=== PATIENT | female | born 1985 | race Caucasian/White ===

== ENCOUNTER → 2016-05-11 | Day surgery (SDC) | payer OTHER ==
[~2016-05-11] VITALS: Ht 160 cm; Wt 61.2 kg
[~2016-05-11] MED LIST: ACET50TA PO; ACET50TAOT PO; ACETAMINOPHEN 650 MG SUPP As Ordered ONE; ACETAMINOPHEN 650 MG SUPP PR ONE; BUPIVACAINE HCL 0.25% 30 ML VIAL As Ordered ONE; DOCU10ELUD PO; HYDROmorphone HCL 1 MG/ML SYRINGE (J1170) IV PRN; IBUP600T26 PO; IBUP60TA PO; IBUP80TA PO; IBUPROFEN 800 MG TAB PO SCH; KETOROLAC 60 MG/2 ML VIAL (J1885) As Ordered ONE; LIDOCAINE 2% INJ 100 MG/5 ML SDV (FOR ANES.) As Ordered ONE; LR 1,000 ML IV SCH; MEPERIDINE INJ 25 MG/ML VIAL (J2175) IV PRN; MIDAZOLAM INJ 2 MG/2 ML VIAL (J2250) As Ordered ONE; ONDANSETRON 4MG/2ML VIAL (J2405) As Ordered ONE; ONDANSETRON 4MG/2ML VIAL (J2405) IV PRN; PERCOCET 5MG/325MG TAB As Ordered ONE; PERCOCET 5MG/325MG TAB PO PRN; PERCOCET FT; PNV-CAP5 PO; PROPOFOL 200 MG/20 ML VIAL As Ordered ONE; VITAPRTA PO; ceFAZolin 1GM INJ (J0690) As Ordered ONE; fentaNYL 100 MCG/2 ML INJECTION (J3010) As Ordered ONE; fentaNYL 100 MCG/2 ML INJECTION (J3010) IV PRN
[2016-05-11 10:48] LABS: MEAN CORPUSCULAR HEMOGLOBIN 31.1 pg (27.0-33.0); MEAN CORPUSCULAR HGB CONC 33.3 g/dl (32.0-36.5); MEAN CORPUSCULAR VOLUME 93.5 fl (80.0-96.0); RED CELL DISTRIBUTION WIDTH 12.4 % (11.5-14.5)
[2016-05-11 11:02] LABS: CONTROL LINE HCG INT CTR LINE PRESENT
[2016-05-11] MEDS: PERCOCET 5MG/325MG TAB PO PRN ×2 (13:42→14:20)
[2016-05-11 15:00] VITALS: BP 106/70
--- NOTE | 2016-05-11 18:20 | RO ---
DATE OF PROCEDURE: 05/11/2016 Claudia is a 28-year-old female with an extensive history of dyspareunia and bilateral vaginal labial hypertrophy with left Bartholin cyst. After counseling in the office a decision was made for bilateral labiaplasty/reduction and marsupialization of the left Bartholin cysts. PREOPERATIVE DIAGNOSES: 1. Bilateral vaginal labial hypertrophy. 2. Dyspareunia. 3. Left Bartholin cyst/abscess POSTOPERATIVE DIAGNOSES: 1. Bilateral vaginal labial hypertrophy. 2. Dyspareunia. 3. Left Bartholin cyst/abscess PROCEDURES: 1. Bilateral vaginal labial reduction and plasty. 2. Marsupialization of a left Bartholin's cyst/abscess. SURGEON: Dr. Arita ANESTHESIA: General. COMPLICATIONS: None. ESTIMATED BLOOD LOSS: Approximately 350 mL. SPECIMENS: Sent to the labs bi-lateral vaginal labia and Bartholin cyst wall. PROCEDURE: After obtaining informed consent the patient was taken to the operating room where general anesthetic was found to be adequate. She was then draped and prepped usual sterile fashion in the dorsal lithotomy position. At this point straight catheter bladder was performed for approximately 150 mL of clear urine. We then identified the left Bartholin cyst with an incision made in the midline of the left labia the cyst was identified and the cyst wall was ruptured. Copious amount of purulent material was removed from the cyst. The cyst wall was identified and the cyst wall was then dissected. We then marsupialized the edge of the crater where the cyst wall was. Attention was then turned to the labia. After copious irrigation and recleaning the vagina the excess vaginal labia's were noted on boths. A midline incision on the labia as well as a lateral incision was made. The excess labia was then removed. We then did a labiaplasty with interrupted sutures down the labia for good hemostasis. The opposite side was done in similar fashion, making sure keep both labia symmetrical. Good hemostasis noted. After performing the bilateral labial plasty the instruments were removed and the patient tolerated procedure well. She was then transferred to recovery room in stable condition.
== END ==
LOC: M SDC 10:08
PROVIDERS: ATTEND Obstetrics & Gynecology
DX: N90.60 Unspecified hypertrophy of vulva (principal); N94.10 Unspecified dyspareunia; N75.0 Cyst of Bartholin's gland; R29.898 Other symptoms and signs involving the musculoskeletal system; R06.83 Snoring; Z86.2 Personal history of diseases of the blood and blood-forming organs and certain disorders involving the immune mechanism; Z87.891 Personal history of nicotine dependence
CPT/HCPCS: 36415; 56420; 56620; 84703; 85027; 86850; 86900; 86901; 88304; 88305; J0690; J1885; J2250; J2405; J3010

== ENCOUNTER → 2017-01-23 | Outpatient (REF) | payer OTHER ==
[~2017-01-23] MED LIST changes: -ACETAMINOPHEN 650 MG SUPP As Ordered ONE; -ACETAMINOPHEN 650 MG SUPP PR ONE; +BACT800T5 PO; -BUPIVACAINE HCL 0.25% 30 ML VIAL As Ordered ONE; -HYDROmorphone HCL 1 MG/ML SYRINGE (J1170) IV PRN; -IBUPROFEN 800 MG TAB PO SCH; -KETOROLAC 60 MG/2 ML VIAL (J1885) As Ordered ONE; -LIDOCAINE 2% INJ 100 MG/5 ML SDV (FOR ANES.) As Ordered ONE; -LR 1,000 ML IV SCH; -MEPERIDINE INJ 25 MG/ML VIAL (J2175) IV PRN; -MIDAZOLAM INJ 2 MG/2 ML VIAL (J2250) As Ordered ONE; -ONDANSETRON 4MG/2ML VIAL (J2405) As Ordered ONE; -ONDANSETRON 4MG/2ML VIAL (J2405) IV PRN; -PERCOCET 5MG/325MG TAB As Ordered ONE; -PERCOCET 5MG/325MG TAB PO PRN; -PROPOFOL 200 MG/20 ML VIAL As Ordered ONE; -ceFAZolin 1GM INJ (J0690) As Ordered ONE; -fentaNYL 100 MCG/2 ML INJECTION (J3010) As Ordered ONE; -fentaNYL 100 MCG/2 ML INJECTION (J3010) IV PRN
[2017-01-23 20:42] LABS: CONTROL LINE UCG INT CTR LINE PRESENT
[2017-01-23 20:52] LABS: CALCIUM OXALATE CRYSTALS SMALL
== END ==
LOC: M LAB REF 16:37
PROVIDERS: ATTEND Physician Assistant
DX: N39.0 Urinary tract infection, site not specified (principal); R06.00 Dyspnea, unspecified; N91.2 Amenorrhea, unspecified

== ENCOUNTER → 2017-05-11 | Outpatient (REF) | payer OTHER | LOC: M LAB REF 20:48 | DX: R30.0 Dysuria (principal) ==

== ENCOUNTER 2017-05-20 01:41 | Emergency (ER) | payer OTHER ==
[2017-05-20] MEDS: IPRATROPIUM 0.5MG/ALBUTEROL 2.5MG INH SOL UD 3ML (DUONEB)(J7620) NEB (02:54)
== END 2017-05-20 03:53 | disposition home or self-care (01) ==
LOC: M ED 01:41
DX: J06.9 Acute upper respiratory infection, unspecified (principal); Z87.891 Personal history of nicotine dependence
CPT/HCPCS: 71046

== ENCOUNTER 2017-05-20 08:15 | Emergency (ER) | payer OTHER ==
[2017-05-20] MEDS: ALBUTEROL SULFATE 2.5 MG/0.5 ML INH NEB SOLN NEB ×2 (09:25→09:27)
[2017-05-20] MEDS: methylPREDNISolone INJ 125 MG/2 ML VIAL (J2930) IM (09:26)
[2017-05-20 10:03] LABS: INFLUENZA A AMPLIFICATION NEGATIVE (NEGATIVE); INFLUENZA B AMPLIFICATION NEGATIVE (NEGATIVE)
== END 2017-05-20 09:52 | disposition home or self-care (01) ==
LOC: M ED 08:15
DX: J06.9 Acute upper respiratory infection, unspecified (principal); R06.2 Wheezing; Z87.891 Personal history of nicotine dependence
CPT/HCPCS: J2930

== ENCOUNTER → 2017-07-07 | Outpatient (REF) | payer OTHER ==
[2017-07-07 15:35] LABS: BASO % 0.3 % (0.0-1.0); EOS % 0.6 % (0.0-3.0); HEMATOCRIT 38.3 % (36.0-47.0); HEMOGLOBIN 12.8 g/dl (12.0-15.5); IMMATURE GRANULOCYTE % 0.3 % (0-3.0); LYMPH # 1.8 10^3/uL (1.5-4.5); LYMPH % 25.4 % (24.0-44.0); MEAN CORPUSCULAR HEMOGLOBIN 31.7 pg (27.0-33.0); MEAN CORPUSCULAR HGB CONC 33.4 g/dl (32.0-36.5); MEAN CORPUSCULAR VOLUME 94.8 fl (80.0-96.0); MONO # 0.7 10^3/uL (0.0-0.8); MONO % 9.6 % (0.0-5.0); NEUTROPHILS # 4.4 10^3/uL (1.8-7.7); NEUTROPHILS % 63.8 % (36.0-66.0); PLATELET COUNT, AUTOMATED 206 10^3/uL (150-450); RED BLOOD COUNT 4.04 10^6/uL (4.00-5.40); RED CELL DISTRIBUTION WIDTH 12.2 % (11.5-14.5)
[2017-07-07 15:48] LABS: FERRITIN 25 NG/ML (8-252); IRON (FE) 138 UG/DL (50-170); PERCENT SATURATION 42.7 % (13.2-45.0); TOTAL IRON BINDING CAPACITY 323 UG/DL (250-450)
[2017-07-07 15:52] LABS: FOLATE 21.5 NG/ML; VITAMIN B12 LEVEL 689 PG/ML
== END ==
LOC: M LABDRAW1 11:11
DX: O99.89 Other specified diseases and conditions complicating pregnancy, childbirth and the puerperium (principal); R42 Dizziness and giddiness; O26.811 Pregnancy related exhaustion and fatigue, first trimester
CPT/HCPCS: 82746

== ENCOUNTER → 2017-08-18 | Outpatient (REF) | payer OTHER ==
[2017-08-18 11:56] LABS: BASO % 0.2 % (0.0-1.0); EOS # 0.1 10^3/uL (0.0-0.50); EOS % 0.6 % (0.0-3.0); HEMATOCRIT 36.8 % (36.0-47.0); HEMOGLOBIN 12.3 g/dl (12.0-15.5); IMMATURE GRANULOCYTE % 0.3 % (0-3.0); LYMPH # 2.4 10^3/uL (1.5-4.5); MEAN CORPUSCULAR HEMOGLOBIN 31.9 pg (27.0-33.0); MEAN CORPUSCULAR HGB CONC 33.4 g/dl (32.0-36.5); MEAN CORPUSCULAR VOLUME 95.3 fl (80.0-96.0); MONO # 0.5 10^3/uL (0.0-0.8); MONO % 5.5 % (0.0-5.0); NEUTROPHILS # 6.5 10^3/uL (1.8-7.7); NEUTROPHILS % 68.4 % (36.0-66.0); PLATELET COUNT, AUTOMATED 193 10^3/uL (150-450); RED BLOOD COUNT 3.86 10^6/uL (4.00-5.40); RED CELL DISTRIBUTION WIDTH 12.2 % (11.5-14.5); WHITE BLOOD COUNT 9.5 10^3/uL (4.0-10.0)
[2017-08-18 12:25] LABS: RUBELLA IgG QUALITATIVE IMMUNE (IMMUNE)
[2017-08-18 12:26] LABS: HBsAg Prenatal NEGATIVE (NEGATIVE)
[2017-08-18 12:54] LABS: HEPATITIS C VIRUS ABY INDEX 0.1 INDEX (<0.8)
[2017-08-18 12:54] LABS: HIV 1&2 SCREEN CENTAUR NEGATIVE (NEGATIVE)
[2017-08-18 14:21] LABS: CHLAMYDIA DNA AMPLIFICATION NEGATIVE (NEGATIVE); GC DNA AMPLIFICATION NEGATIVE (NEGATIVE)
== END ==
LOC: M LABDRAWP 11:32
DX: Z34.81 Encounter for supervision of other normal pregnancy, first trimester (principal); Z3A.11 11 weeks gestation of pregnancy
CPT/HCPCS: 86762

== ENCOUNTER 2017-08-24 06:16 | Day surgery (SDC) | payer OTHER ==
[2017-08-24] MEDS ORDERED: LR 1,000 ML IV ×3 (06:30→09:00)
[2017-08-24 06:39] LABS: HEMATOCRIT 34.9 % (36.0-47.0); MEAN CORPUSCULAR HEMOGLOBIN 31.7 pg (27.0-33.0); MEAN CORPUSCULAR HGB CONC 34.4 g/dl (32.0-36.5); MEAN CORPUSCULAR VOLUME 92.3 fl (80.0-96.0); PLATELET COUNT, AUTOMATED 195 10^3/uL (150-450); RED BLOOD COUNT 3.78 10^6/uL (4.00-5.40); RED CELL DISTRIBUTION WIDTH 12.1 % (11.5-14.5); WHITE BLOOD COUNT 8.6 10^3/uL (4.0-10.0)
[2017-08-24] MEDS ORDERED: ePHEDrine SULFATE 25 MG/5 ML(5MG/ML) SYRINGE As Ordered (08:04)
[2017-08-24] MEDS ORDERED: ONDANSETRON 4MG/2ML VIAL (J2405) As Ordered (08:04)
[2017-08-24] MEDS ORDERED: fentaNYL 100 MCG/2 ML INJECTION (J3010) As Ordered (08:04)
[2017-08-24] MEDS ORDERED: LIDOCAINE 2% INJ 100 MG/5 ML SDV (FOR ANES.) As Ordered (08:04)
[2017-08-24] MEDS ORDERED: PROPOFOL 200 MG/20 ML VIAL As Ordered (08:04)
[2017-08-24] MEDS: SILVER NITRATE APPLICATOR As Ordered (08:33)
[2017-08-24] MEDS ORDERED: MEPERIDINE INJ 25 MG/ML VIAL (J2175) IV (09:00)
[2017-08-24] MEDS ORDERED: fentaNYL 100 MCG/2 ML INJECTION (J3010) IV (09:00)
[2017-08-24] MEDS ORDERED: METOCLOPRAMIDE INJ 10MG/2ML VIAL (J2765) IV (09:00)
[2017-08-24] MEDS ORDERED: PERCOCET 5MG/325MG TAB PO (09:00)
[2017-08-24] MEDS ORDERED: ONDANSETRON 4MG/2ML VIAL (J2405) IV (09:00)
[2017-08-24] MEDS: INDOMETHACIN 25 MG CAP PO (09:07)
== END 2017-08-24 10:35 | disposition home or self-care (01) ==
LOC: M SDC 06:16
DX: O34.32 Maternal care for cervical incompetence, second trimester (principal); O99.612 Diseases of the digestive system complicating pregnancy, second trimester; K21.9 Gastro-esophageal reflux disease without esophagitis; O99.112 Other diseases of the blood and blood-forming organs and certain disorders involving the immune mechanism complicating pregnancy, second trimester; D69.3 Immune thrombocytopenic purpura; R06.83 Snoring; Z86.718 Personal history of other venous thrombosis and embolism; Z3A.13 13 weeks gestation of pregnancy
CPT/HCPCS: 59320

== ENCOUNTER → 2017-10-04 | Outpatient (CLI) | payer OTHER | LOC: M RAD 13:06 | DX: Z34.82 Encounter for supervision of other normal pregnancy, second trimester (principal) | CPT/HCPCS: 76811 ==

== ENCOUNTER → 2017-11-01 | Outpatient (CLI) | payer OTHER | LOC: M RAD 12:33 | DX: O09.212 Supervision of pregnancy with history of pre-term labor, second trimester (principal) | CPT/HCPCS: 76816 ==

== ENCOUNTER → 2017-12-02 | Outpatient (CLI) | payer MEDICAID ==
[2017-12-02 19:20] LABS: HEMATOCRIT 37.2 % (36.0-47.0); HEMOGLOBIN 11.8 g/dl (12.0-15.5); MEAN CORPUSCULAR HEMOGLOBIN 30.7 pg (27.0-33.0); MEAN CORPUSCULAR HGB CONC 31.7 g/dl (32.0-36.5); MEAN CORPUSCULAR VOLUME 96.9 fl (80.0-96.0); PLATELET COUNT, AUTOMATED 206 10^3/uL (150-450); RED BLOOD COUNT 3.84 10^6/uL (4.00-5.40); WHITE BLOOD COUNT 11.2 10^3/uL (4.0-10.0)
[2017-12-02 19:25] LABS: GLUCOSE CHALLENGE TEST 1 HOUR 158 MG/DL (LESS THAN 140)
== END ==
LOC: M WUC 11:38
DX: O09.212 Supervision of pregnancy with history of pre-term labor, second trimester (principal)
CPT/HCPCS: 82950

== ENCOUNTER → 2017-12-21 | Outpatient (CLI) | payer OTHER, MEDICAID ==
[2017-12-21 09:03] LABS: GLUCOSE, FASTING 90 MG/DL (LESS THAN 95)
[2017-12-21 09:55] LABS: 1 HR GLUCOSE 145 MG/DL (LESS THAN 180)
[2017-12-21 10:58] LABS: 2 HR GLUCOSE 128 MG/DL (LESS THAN 155)
[2017-12-21 12:55] LABS: 3 HR GLUCOSE 106 MG/DL (LESS THAN 140)
== END ==
LOC: M LAB 07:58
DX: O09.212 Supervision of pregnancy with history of pre-term labor, second trimester (principal); Z3A.00 Weeks of gestation of pregnancy not specified
CPT/HCPCS: 82951

== ENCOUNTER → 2018-01-23 | Outpatient (REF) | payer OTHER | LOC: M LAB REF 17:12 | DX: O09.213 Supervision of pregnancy with history of pre-term labor, third trimester (principal); Z36.85 Encounter for antenatal screening for Streptococcus B | CPT/HCPCS: 87081 ==

== ENCOUNTER 2018-01-28 11:44 | Observation (INO) | payer OTHER ==
[2018-01-28] MEDS ORDERED: CHLOROPROCAINE 2 % INJ PRES.FREE 20 ML VIAL (J2400) As Ordered (13:15)
[2018-01-28] MEDS ORDERED: PROPOFOL 200 MG/20 ML VIAL As Ordered (13:19)
[2018-01-28] MEDS ORDERED: LIDOCAINE 2% INJ 100 MG/5 ML SDV (FOR ANES.) As Ordered (13:20)
[2018-01-28 13:30] LABS: HEMATOCRIT 33.8 % (36.0-47.0); HEMOGLOBIN 11.1 g/dl (12.0-15.5); MEAN CORPUSCULAR HEMOGLOBIN 30.3 pg (27.0-33.0); MEAN CORPUSCULAR HGB CONC 32.8 g/dl (32.0-36.5); MEAN CORPUSCULAR VOLUME 92.3 fl (80.0-96.0); PLATELET COUNT, AUTOMATED 191 10^3/uL (150-450); RED BLOOD COUNT 3.66 10^6/uL (4.00-5.40); RED CELL DISTRIBUTION WIDTH 12.9 % (11.5-14.5); WHITE BLOOD COUNT 9.3 10^3/uL (4.0-10.0)
[2018-01-28] MEDS ORDERED: ePHEDrine SULFATE 25 MG/5 ML(5MG/ML) SYRINGE As Ordered (14:14)
[2018-01-28] MEDS ORDERED: PHENYLephrine HCL 500 MCG/5 ML (100MCG/ML) SYRINGE (J2370) As Ordered (14:15)
[2018-01-28] MEDS ORDERED: ATROPINE SULF 1MG/10ML SYRINGE (J0461) As Ordered (14:15)
[2018-01-28] MEDS ORDERED: GLYCOPYRROLATE INJ 0.2 MG/ML 2 ML VIAL As Ordered (14:16)
[2018-01-28] MEDS ORDERED: fentaNYL 100 MCG/2 ML INJECTION (J3010) IV (15:00)
[2018-01-28] MEDS ORDERED: ONDANSETRON 4MG/2ML VIAL (J2405) IV (15:00)
[2018-01-28] MEDS ORDERED: LR 1,000 ML IV (15:00)
[2018-01-28] MEDS: BETAMETHASONE SOLUSPAN 6MG/ML INJ 5ML (J0702) IM (15:48)
[2018-01-29] MEDS: BETAMETHASONE SOLUSPAN 6MG/ML INJ 5ML (J0702) IM (15:23)
== END 2018-01-29 15:40 | disposition home or self-care (01) ==
LOC: M LDO 11:44 → M LDI 15:16
PROVIDERS: Obstetrics & Gynecology
DX: N88.3 Incompetence of cervix uteri (principal); N99.71 Accidental puncture and laceration of a genitourinary system organ or structure during a genitourinary system procedure
CPT/HCPCS: 57720

== ENCOUNTER 2018-02-23 06:30 | Inpatient (IN) | payer OTHER ==
[~2018-02-23] VITALS: Ht 162.6 cm; Wt 90.3 kg
[2018-02-23] VITALS (23 sets, daily range): BP systolic 109–125; BP diastolic 58–93
[~2018-02-23 06:30] MED LIST changes: +ACET500T15 PO; -ACET50TAOT PO; +OMEP40CA2 PO; +PRENTAB55 PO; +PROAAER10 INH
[2018-02-23] MEDS ORDERED: PRENTAB9 PO (06:41)
[2018-02-23] MEDS ORDERED: LACTATED RINGER'S 1000 ML IV STA (07:13)
[2018-02-23 07:43] LABS: HEMATOCRIT 34.6 % (36.0-47.0); HEMOGLOBIN 11.1 g/dl (12.0-15.5); MEAN CORPUSCULAR HEMOGLOBIN 29.5 pg (27.0-33.0); MEAN CORPUSCULAR HGB CONC 32.1 g/dl (32.0-36.5); PLATELET COUNT, AUTOMATED 200 10^3/uL (150-450); RED BLOOD COUNT 3.76 10^6/uL (4.00-5.40); WHITE BLOOD COUNT 9.5 10^3/uL (4.0-10.0)
--- NOTE | 2018-02-23 07:45 | HPE ---
DATE OF ADMISSION: 02/23/2018 CHIEF COMPLAINT: Labor. HISTORY OF PRESENT ILLNESS: Claudia is a 32-year-old, (G) 5, para (P) 0-2-2-1, at 39 weeks 2 days estimated gestational age by last menstrual period of 05/24/2017 with an estimated date of confinement of 02/28/2018. This was confirmed by first trimester ultrasound. She initiated care at [facility] in the first trimester. She presents today complaining of uterine contractions every 20 minutes that last about 5 minutes since 0400 hours this morning. She denies any bleeding or discharge and is feeling the baby move. Her water broke at 0700 while she was being roomed at labor and delivery. Obstetrical history is significant for [place] cerclage placed at 13 weeks 1 day and was removed on January 28, 2018. During the removal, she did have a cervical laceration with repair. She received [place] injections from 16 to 36 weeks. LABS: Blood type O positive. GBS negative. Rubella immune. HIV negative. Gonorrhea negative. Chlamydia negative. Hepatitis B surface antigen negative. VDRL nonreactive. Diabetes screen 158. 3-hour GTT: 90/145/128/106. Blood pressures in the office have been ranging from 100-130 systolic over 62-74 diastolic. She has gained 49 pounds this . OBSTETRICAL ULTRASOUND: anatomy scan on 10/04/2017 showed a single intrauterine with anterior placenta. PAST OBSTETRICAL HISTORY: 1. In 2010, miscarriage at 19 weeks estimated gestational age secondary to placental abruption and incompetent cervix. 2. In 2012, miscarriage at 24 weeks estimated gestational age secondary to incompetent cervix. 3. In 2013, spontaneous at 4 weeks gestational age. 4. In 2014, she delivered a male infant at 36 weeks 3 days estimated gestational age via normal spontaneous vaginal delivery weighing 6 pounds 15 ounces, significant for a cerclage placed at 13 weeks and receiving Deirdre weekly. PAST MEDICAL HISTORY: None. MEDICATIONS: - vitamins - omeprazole 20 mg daily - [place] injections from 16-36 weeks. PAST SURGICAL HISTORY: Heel surgery, tonsillectomy and adenoidectomy. ALLERGIES: None. SOCIAL HISTORY: The patient is single, father of the baby is involved. Denies tobacco, alcohol or drug use. EXAMINATION: Vitals: Temperature 97.1, heart rate 80, blood pressure 121/73, respiratory rate 20. Abdomen: Gravid. Sterile Vaginal Exam: 4 cm, 80% effaced, -2 station. Monitor: Category one tracing with a baseline of 140 beats per minute. Moderate variability, positive accelerations, no decelerations. [place]: Contractions every 6 minutes for approximately 1 minute each. ASSESSMENT/PLAN: 1. Intrauterine at 39 and 2 in active labor. 2. GBS negative, no need for antibiotics. 3. Patient is requesting epidural for pain. 4. Anticipate normal spontaneous vaginal delivery. My faculty preceptor for this patient encounter was physically present during the encounter and was fully available. All aspects of the patient interview, examination, medical decision making process, and medical care plan development were reviewed and approved by the faculty preceptor. The faculty preceptor is aware and concurs with the plan as stated in the body of this note and will attest to such by his/her co-signature. SEFERINO
[2018-02-23] MEDS ORDERED: LR 1,000 ML IV SCH (08:00)
--- NOTE | 2018-02-23 08:52 | IPNPDOC ---
Text Note Date of Service The patient was seen on 02/23/18. NOTE Feeling pressure UC Q 2-3 minutes x 45-60 seconds FH 145, Cat I SVE /-2, bulging forebag Epidural pending VS,Karma, I+O VS, Fishbone, I+O Laboratory Tests 02/23/18 07:24 Red Blood Count 3.76 L, Mean Corpuscular Volume 92.0, Mean Corpuscular Hemoglobin 29.5, Mean Corpuscular Hemoglobin Concent 32.1, Red Cell Distribution Width 14.0 Vital Signs Date Time Temp Pulse Resp B/P (MAP) Pulse Ox O2 Delivery O2 Flow Rate FiO2 02/23/18 07:39 98.0 77 18 115/78 (90) Danielle Duran CNM Feb 23, 2018 08:51
[2018-02-23] MEDS: PRENATAL VITAMINS CHEWABLE TABLET PO SCH (09:00)
[2018-02-23] MEDS ORDERED: diphenhydrAMINE INJ 50MG/ML VIAL (J1200) IV PRN (10:00)
[2018-02-23] MEDS ORDERED: LACTATED RINGER'S 1000 ML IV PRN (10:00)
[2018-02-23] MEDS ORDERED: EPIDURAL/PCA KEYS XX PRN (10:00)
[2018-02-23] MEDS ORDERED: NALOXONE INJ 0.4 MG/1 ML VIAL (J2310) IV PRN (10:00)
[2018-02-23] MEDS ORDERED: ePHEDrine SULFATE 25 MG/5 ML(5MG/ML) SYRINGE IV PRN (10:00)
[2018-02-23] MEDS ORDERED: ONDANSETRON 4MG/2ML VIAL (J2405) IV PRN ×2 (10:00→11:30)
[2018-02-23] MEDS ORDERED: REFRIGERATOR IV KEYS XX PRN (10:00)
[2018-02-23] MEDS ORDERED: FENTANYL/ROPIVACAINE/NACL BAG 100 ML EPIDURAL SCH (10:00)
[2018-02-23] MEDS ORDERED: EPIDURAL COMMENT XX SCH (10:00)
[2018-02-23] MEDS ORDERED: OXYTOCIN 30 UNITS IN 0.9% NaCl 500ML IV BAG (J2590) As Ordered ONE (10:08)
[2018-02-23] MEDS: OXYTOCIN DRIP 30 UNITS in APPROPRIATE DILUENT 1 EA IV SCH ×2 (11:17→11:48)
[2018-02-23 11:23] LABS: CORD GAS ABE V -2.7; CORD GAS HCO3 V 23.6 MEQ/L; CORD GAS PCO2 V 46.4 mmHg; CORD GAS PH V 7.325 UNITS; CORD GAS PO2 V 40.5 mmHg; CORD GAS SBC V 21.9 MEQ/L; CORD GAS TCO2 V 25.1 MEQ/L
[2018-02-23] MEDS ORDERED: DIBUCAINE 1% OINTMENT 30GM TOP PRN (11:30)
[2018-02-23] MEDS ORDERED: DOCUSATE SODIUM 100 MG CAP PO PRN (11:30)
[2018-02-23] MEDS ORDERED: ACETAMINOPHEN 500 MG TAB PO PRN (11:30)
[2018-02-23] MEDS ORDERED: METHYLERGONOVINE MALEATE 0.2 MG TAB PO PRN (11:30)
[2018-02-23] MEDS ORDERED: MEASLES,MUMPS,RUBELLA VACCINE INJ (MMR-II) (90707) SC SCH (11:30)
[2018-02-23] MEDS ORDERED: RHOGAM 300 MCG (1500 IU) INJ (J2790) IM SCH (11:30)
--- NOTE | 2018-02-23 14:24 | DN ---
DELIVERY NOTE DATE OF DELIVERY: 02/23/2018 PREDELIVERY DIAGNOSIS: 39 weeks 2 days gestation. POST DELIVERY DIAGNOSIS: Delivered. PROCEDURE: Spontaneous vaginal delivery. PROVIDER: Kelsy Bermudez OD PGY-2 ORDAINED MINISTER: Danielle Duran CNM ANESTHESIA: Epidural. ESTIMATED BLOOD LOSS: 400 mL. FINDINGS: Male weighing 7 pounds 13 ounces or 3550 grams. scores 8 and 9. DELIVERY SUMMARY: After a short second stage the patient spontaneously delivered an 7 pound 13 ounce or 3550 gram male infant under epidural anesthesia at 1057 hours. The delivered left occiput anterior, restituted to left occiput transverse. There was no nuchal. The shoulders delivered with ease followed by the corpus and terminal meconium. The cried spontaneously and was handed to the mother. scores were 8 and 9. The cord was doubly clamped and cut by the father of baby. The placenta was delivered spontaneously via Storey mechanism at 1106 hours and appeared to be intact. The patient received IV Pitocin immediately after delivery of the placenta. The patient did not have any tears. Sponge, instrument and needle counts were correct. The parents have named their baby Tree. My faculty preceptor for this patient encounter was physically present during the encounter and was fully available. All aspects of the patient interview, examination, medical decision making process, and medical care plan development were reviewed and approved by the faculty preceptor. The faculty preceptor is aware and concurs with the plan as stated in the body of this note and will attest to such by his/her cosignature. SEFERINO
[2018-02-23] MEDS: IBUPROFEN 800 MG TAB PO PRN (19:52)
[2018-02-24] MEDS: IBUPROFEN 800 MG TAB PO PRN ×2 (05:26→15:42)
[2018-02-24 05:46] VITALS: BP 113/72
--- NOTE | 2018-02-24 07:11 | IPNPDOC ---
Text Note Date of Service The patient was seen on 02/24/18. NOTE PP #1 Feels well. Breast feeding. Adequate pain management. Voiding VSS, afebrile, normotensive Breasts soft, nipples intact Fundus firm, NT, down 1 FB Lochia rubra light without odor Perineum intact PP #1 Routine care. Anticipate D/C mahad VS,Fishbone, I+O VS, Fishbone, I+O Laboratory Tests 02/23/18 07:24 Red Blood Count 3.76 L, Mean Corpuscular Volume 92.0, Mean Corpuscular Hemoglobin 29.5, Mean Corpuscular Hemoglobin Concent 32.1, Red Cell Distribution Width 14.0 Vital Signs Date Time Temp Pulse Resp B/P (MAP) Pulse Ox O2 Delivery O2 Flow Rate FiO2 02/24/18 05:46 98.2 92 18 113/72 (86) I&O- Last 24 Hours up to 6 AM 02/24/18 06:00 Intake Total 800 ml Output Total 400 ml Balance 400 ml Danielle Duran CNM Feb 24, 2018 07:11
[2018-02-24] MEDS: PRENATAL VITAMINS CHEWABLE TABLET PO SCH (08:18)
[2018-02-24 18:00] VITALS: BP 117/73
[2018-02-25] MEDS: IBUPROFEN 800 MG TAB PO PRN (05:36)
[2018-02-25 06:02] VITALS: BP 120/76
[2018-02-25] MEDS: PRENATAL VITAMINS CHEWABLE TABLET PO SCH (09:07)
--- NOTE | 2018-02-25 10:21 | NUR ---
Day 2 Status post , uncomplicated Subjective Pain is well controlled. Lochia decreasing and minimal. Voiding spontaneously. Tolerating a regular diet. Ambulating without any assistance. Denies any subjective fever/chills/nausea/vomiting/headache/visual changes/shortness of breath/chest pain. Breast feeding. Objective Vitals: Normotensive, normal heart rate, afebrile, adequate urine output. Heart: regular, rate, and rhythm. no murmurs/gallops/rubs Lungs: clear to auscultation bilaterally, no wheezes/crackles/rales/ronchi Abd: soft, nontender, nondistended, uterine fundus is 2cm below umbilicus and firm Ext: no significant edema, nontender, negative Sav's bilaterally. Assessment/Plan: day 2. Recovering well. Hemodynamically stable, afebrile, good pain control. -Routine care -Discharge to home today -Routine infectious, fever, pain, and bleeding precautions reviewed Dr. Trell Lorenz D.O., F.A.C.O.G.
[2018-02-25] MEDS ORDERED: PRENTAB55 PO (11:13)
[2018-02-25] MEDS ORDERED: ACET-683 PO (11:13)
[2018-02-25] MEDS ORDERED: IBUP80TA PO (11:13)
[2018-02-25] MEDS ORDERED: COLA100C5 PO (11:13)
== END 2018-02-25 12:40 | disposition home or self-care (01) | DRG 560 ==
LOC: M LDO 06:30 → M LDI 06:43 → M OBS 13:28
PROVIDERS: ADMIT Specialist; ATTEND Advanced Practice Midwife
PROC: 10E0XZZ Delivery of Products of Conception, External Approach (ICD-10-PCS; principal; 2018-02-23)
DX: O80 Encounter for full-term uncomplicated delivery (principal); Z3A.39 39 weeks gestation of pregnancy; Z37.0 Single live birth

== ENCOUNTER → 2018-07-26 | Outpatient (REF) | payer OTHER ==
[~2018-07-26] MED LIST changes: +ACET-683 PO; -ACET50TA PO; +COLA100C5 PO; -DOCU10ELUD PO; +DOCU5LIQ PO; +IBUP600T42 PO; -IBUP60TA PO; +MAPA500T17 PO; +OXYC1TAB23 FT; -PERCOCET FT; +PRENTAB9 PO
[2018-07-26 22:21] LABS: CHLAMYDIA DNA AMPLIFICATION NEGATIVE (NEGATIVE); GC DNA AMPLIFICATION NEGATIVE (NEGATIVE)
[2018-07-28 17:16] LABS: HPV HYBRID CAPTURE II Negative (Negative)
== END ==
LOC: M LAB REF 16:56
PROVIDERS: ATTEND Physician Assistant Medical
DX: Z01.419 Encounter for gynecological examination (general) (routine) without abnormal findings (principal); Z11.3 Encounter for screening for infections with a predominantly sexual mode of transmission

== ENCOUNTER → 2019-08-20 | Outpatient (CLI) | payer OTHER ==
[~2019-08-20] MED LIST changes: -OMEP40CA2 PO; +OMEP40CA97 PO
[2019-08-20 17:30] LABS: BASO % 0.3 % (0.0-1.0); EOS # 0.1 10^3/uL (0.0-0.5); EOS % 0.8 % (0.0-3.0); HEMATOCRIT 40.2 % (36.0-47.0); HEMOGLOBIN 12.7 g/dl (12.0-15.5); LYMPH % 42.5 % (24.0-44.0); MEAN CORPUSCULAR HEMOGLOBIN 28.9 pg (27.0-33.0); MEAN CORPUSCULAR HGB CONC 31.6 g/dl (32.0-36.5); MEAN CORPUSCULAR VOLUME 91.6 fl (80.0-96.0); MONO # 0.6 10^3/uL (0.0-0.8); MONO % 6.5 % (0.0-5.0); NEUTROPHILS # 4.6 10^3/uL (1.5-8.5); NEUTROPHILS % 49.8 % (36.0-66.0); PLATELET COUNT, AUTOMATED 271 10^3/uL (150-450); RED BLOOD COUNT 4.39 10^6/uL (4.00-5.40); WHITE BLOOD COUNT 9.3 10^3/uL (4.0-10.0)
[2019-08-20 17:57] LABS: FREE T4 0.95 NG/DL (0.76-1.46); THYROID STIMULATING HORMONE 1.47 uIU/ML (0.358-3.740)
== END ==
LOC: M PLALAB 15:50
PROVIDERS: ATTEND Physician Assistant
DX: F41.9 Anxiety disorder, unspecified (principal); R53.83 Other fatigue

== ENCOUNTER → 2019-10-10 | Outpatient (CLI) | payer OTHER ==
[~2019-10-10] MED LIST changes: +BUPR150T3 PO; +FAMO40TA3 PO; +MICR1TAB18 PO; +PANT40TA29 PO
== END ==
LOC: M LAB 16:04
PROVIDERS: ATTEND Nurse Practitioner
DX: K21.9 Gastro-esophageal reflux disease without esophagitis (principal)

== ENCOUNTER → 2019-10-18 | Outpatient (CLI) | payer OTHER | LOC: M LABSMTC 12:25 | PROVIDERS: ATTEND Anesthesiology | DX: Z01.812 Encounter for preprocedural laboratory examination (principal) | CPT/HCPCS: C9803; U0003 ==

== ENCOUNTER 2019-10-23 09:09 | Day surgery (SDC) | payer OTHER ==
[~2019-10-23] VITALS: Ht 162.6 cm; Wt 82.0 kg
[~2019-10-23 09:09] MED LIST changes: +NS 1,000 ML IV ONE
[2019-10-23] MEDS ORDERED: propofoL 500 MG/50 ML VIAL As Ordered ONE (10:37)
[2019-10-23] MEDS ORDERED: fentaNYL 100 MCG/2 ML INJECTION (J3010) As Ordered ONE (10:37)
[2019-10-23] MEDS ORDERED: LIDOCAINE 2% 100MG/5ML SDV (FOR ANES.) As Ordered ONE (10:37)
[2019-10-23 11:18] VITALS: BP 126/88
--- NOTE | 2019-10-30 11:37 | ROOR ---
Patient Name: Claudia Marte Procedure Date: 10/23/2019 8:33 AM Date of : 1985 Age: 34 Room: OP02 Gender: Female Note Status: Finalized Procedure: Upper GI endoscopy Indications: Suspected esophageal reflux Providers: DO Duran Miranda MD: YULIYA Hunt Requesting Provider: Medicines: Propofol per Anesthesia Complications: No immediate complications. Procedure: Pre-Anesthesia Assessment: - Prior to the procedure, a History and Physical was performed, and patient medications and allergies were reviewed. The patient is competent. The risks and benefits of the procedure and the sedation options and risks were discussed with the patient. All questions were answered and informed consent was obtained. Patient identification and proposed procedure were verified by the physician, the nurse and the bone density technician in the endoscopy suite. Mental Status Examination: alert and oriented. Airway Examination: normal oropharyngeal airway and neck mobility. Respiratory Examination: clear to auscultation. CV Examination: normal. Prophylactic Antibiotics: The patient does not require prophylactic antibiotics. Prior Anticoagulants: The patient has taken no previous anticoagulant or antiplatelet agents. ASA Grade Assessment: II - A patient with mild systemic disease. After reviewing the risks and benefits, the patient was deemed in satisfactory condition to undergo the procedure. The anesthesia plan was to use monitored anesthesia care (MAC). Immediately prior to administration of medications, the patient was re-assessed for adequacy to receive sedatives. The heart rate, respiratory rate, oxygen saturations, blood pressure, adequacy of pulmonary ventilation, and response to care were monitored throughout the procedure. The physical status of the patient was re-assessed after the procedure. The Endoscope was introduced through the mouth, and advanced to the second part of duodenum. The upper GI endoscopy was accomplished without difficulty. The patient tolerated the procedure well. Findings: The Z-line was irregular. Biopsies were taken with a cold forceps for histology. Estimated blood loss was minimal. Localized mild inflammation characterized by erosions, erythema and friability was found in the duodenal bulb. The exam of the stomach was otherwise normal. Biopsies were taken with a cold forceps in the prepyloric region of the stomach for Helicobacter pylori testing. Estimated blood loss was minimal. Impression: - Z-line irregular. Biopsied. - Duodenitis. - Biopsies were taken with a cold forceps for Helicobacter pylori testing. Recommendation: - Patient has a contact number available for emergencies. The signs and symptoms of potential delayed complications were discussed with the patient. Return to normal activities tomorrow. Written discharge instructions were provided to the patient. - Return to my office at appointment to be scheduled. Walter Lu DO 10/23/2019 10:51:37 AM Number of Addenda: 0 Note Initiated On: 10/23/2019 8:33 AM Estimated Blood Loss: Estimated blood loss was minimal.
== END 2019-10-23 11:04 | disposition home or self-care (01) ==
LOC: M OPP 09:09
PROVIDERS: ATTEND Surgery
DX: K22.8 Other specified diseases of esophagus (principal); K29.80 Duodenitis without bleeding; Z87.891 Personal history of nicotine dependence
CPT/HCPCS: 43239; 88305; J3010

== ENCOUNTER → 2021-01-13 | Outpatient (REF) ==
[~2021-01-13] MED LIST changes: +BUPR150T12 PO; -BUPR150T3 PO; -NS 1,000 ML IV ONE; +OMEP40CA4 PO; -OMEP40CA97 PO
== END ==
LOC: M EMP 13:04
PROVIDERS: ATTEND Family Medicine
DX: Z20.822 Contact with and (suspected) exposure to COVID-19 (principal)

== ENCOUNTER → 2021-01-16 | Outpatient (REF) | LOC: M LABSMTC 10:25 | PROVIDERS: ATTEND Family Medicine | DX: Z20.822 Contact with and (suspected) exposure to COVID-19 (principal) ==

== ENCOUNTER → 2021-03-12 | Outpatient (REF) | LOC: M LABSMTC 11:52 | PROVIDERS: ATTEND Pediatrics | DX: Z11.52 Encounter for screening for COVID-19 (principal) ==

== ENCOUNTER → 2021-03-31 | Outpatient (CLI) | payer OTHER ==
[2021-03-31 13:10] LABS: BASO % 0.3 % (0.0-1.0); EOS % 0.3 % (0.0-3.0); HEMOGLOBIN 12.4 g/dl (12.0-15.5); LYMPH # 2.2 10^3/uL (1.5-5.0); LYMPH % 18.4 % (24.0-44.0); MEAN CORPUSCULAR HEMOGLOBIN 30.5 pg (27.0-33.0); MEAN CORPUSCULAR HGB CONC 32.6 g/dl (32.0-36.5); MEAN CORPUSCULAR VOLUME 93.4 fl (80.0-96.0); MONO # 0.6 10^3/uL (0.0-0.8); MONO % 4.8 % (2.0-8.0); NEUTROPHILS # 9.1 10^3/uL (1.5-8.5); NEUTROPHILS % 75.7 % (36.0-66.0); PLATELET COUNT, AUTOMATED 227 10^3/uL (150-450); RED BLOOD COUNT 4.07 10^6/uL (4.00-5.40)
[2021-03-31 14:29] LABS: HIV 1&2 SCREEN CENTAUR NEGATIVE (NEGATIVE)
[2021-03-31 14:35] LABS: GC DNA AMPLIFICATION NEGATIVE (NEGATIVE)
== END ==
LOC: M PLALAB 10:40
PROVIDERS: ATTEND Obstetrics & Gynecology
DX: O34.31 Maternal care for cervical incompetence, first trimester (principal); Z3A.00 Weeks of gestation of pregnancy not specified

== ENCOUNTER → 2021-04-22 | Outpatient (CLI) | payer OTHER ==
[~2021-04-22] MED LIST changes: +OMEP1CAP73 PO; +PRENTAB53 PO
== END ==
LOC: M LABSMTC 10:52
PROVIDERS: ATTEND Anesthesiology
DX: Z11.52 Encounter for screening for COVID-19 (principal)

== ENCOUNTER 2021-04-27 06:03 | Day surgery (SDC) | payer OTHER ==
[~2021-04-27] VITALS: Ht 162.6 cm; Wt 80.7 kg
[~2021-04-27 06:03] MED LIST changes: +LIDOCAINE 1% MDV 20ML VIAL SQ PRN; +LR 1,000 ML IV ONE
[2021-04-27 06:47] LABS: HEMATOCRIT 33.4 % (36.0-47.0); HEMOGLOBIN 11.3 g/dl (12.0-15.5); MEAN CORPUSCULAR HEMOGLOBIN 30.7 pg (27.0-33.0); MEAN CORPUSCULAR HGB CONC 33.8 g/dl (32.0-36.5); MEAN CORPUSCULAR VOLUME 90.8 fl (80.0-96.0); PLATELET COUNT, AUTOMATED 214 10^3/uL (150-450); RED BLOOD COUNT 3.68 10^6/uL (4.00-5.40); WHITE BLOOD COUNT 10.4 10^3/uL (4.0-10.0)
[2021-04-27] MEDS ORDERED: MIDAZOLAM INJ 2MG/2ML VIAL (J2250 PER 1MG) As Ordered ONE (06:57)
[2021-04-27] MEDS ORDERED: ONDANSETRON 4MG/2ML VIAL As Ordered ONE (06:58)
[2021-04-27] MEDS ORDERED: LIDOCAINE 2% 100MG/5ML SDV (FOR ANES.) As Ordered ONE (06:58)
[2021-04-27] MEDS ORDERED: dexameTHASONE 4 MG/ML 1ML VIAL (J1100 PER 1MG) As Ordered ONE (06:58)
[2021-04-27] MEDS ORDERED: propofoL 200 MG/20 ML VIAL As Ordered ONE (06:58)
[2021-04-27] MEDS ORDERED: fentaNYL 100 MCG/2 ML INJECTION As Ordered ONE (06:58)
[2021-04-27] MEDS ORDERED: SILVER NITRATE APPLICATOR As Ordered ONE (07:08)
[2021-04-27] MEDS ORDERED: ACETAMINOPHEN 1000MG 100ML IV BTL (OFIRMEV) (J0131 PER 10MG) As Ordered ONE (07:47)
[2021-04-27] MEDS ORDERED: LR 1,000 ML IV SCH ×2 (08:35)
[2021-04-27] MEDS ORDERED: ONDANSETRON 4MG/2ML VIAL IV PRN (08:35)
[2021-04-27] MEDS ORDERED: oxyCODONE 5MG TAB PO PRN (08:35)
[2021-04-27] MEDS ORDERED: INDOMETHACIN 25 MG CAP PO PRN (08:35)
[2021-04-27] MEDS ORDERED: fentaNYL 100 MCG/2 ML INJECTION IV PRN (08:35)
[2021-04-27 08:37] LABS: APPEARANCE, URINE CLEAR (CLEAR); BACTERIA, URINE AUTO NEGATIVE (NEGATIVE); BILIRUBIN, URINE AUTO NEGATIVE (NEGATIVE); BLOOD, URINE BLOOD NEGATIVE (NEGATIVE); COLOR, URINE YELLOW (YELLOW); GLUCOSE, URINE (UA) AUTO NEGATIVE (NEGATIVE); KETONE, URINE AUTO NEGATIVE (NEGATIVE); LEUKOCYTE ESTERASE, URINE AUTO NEGATIVE (NEGATIVE); MUCUS, URINE SMALL (NEGATIVE); NITRITE, URINE AUTO NEGATIVE (NEGATIVE); PROTEIN, URINE AUTO NEGATIVE (NEGATIVE); RBC, URINE AUTO 0 /HPF (0-3); SPECIFIC GRAVITY URINE AUTO 1.018 (1.002-1.035); SQUAMOUS EPITHELIAL CELL UR AU 0 /HPF (0-6); UROBILINOGEN, URINE AUTO 0.2 mg/dL (0.0-2.0); WBC, URINE AUTO 0 /HPF (0-3)
[2021-04-27 09:05] VITALS: BP 118/68
== END 2021-04-27 09:39 | disposition home or self-care (01) ==
LOC: M SDC 06:03
PROVIDERS: ATTEND Obstetrics & Gynecology
DX: O34.32 Maternal care for cervical incompetence, second trimester (principal); Z3A.14 14 weeks gestation of pregnancy
CPT/HCPCS: 36415; 59320; 81001; 85027; 86850; 86900; 86901; 87088; 87186; J0131; J1100; J2250; J2405; J3010

== ENCOUNTER → 2021-07-28 | Outpatient (CLI) | payer OTHER ==
[~2021-07-28] MED LIST changes: -LIDOCAINE 1% MDV 20ML VIAL SQ PRN; -LR 1,000 ML IV ONE; -MICR1TAB18 PO; +NORE1TAB94 PO
== END ==
LOC: M WHC 11:54
PROVIDERS: ATTEND Obstetrics & Gynecology
DX: Z36.2 Encounter for other antenatal screening follow-up (principal); O34.32 Maternal care for cervical incompetence, second trimester; Z3A.28 28 weeks gestation of pregnancy

== ENCOUNTER → 2021-07-28 | Outpatient (CLI) | payer OTHER ==
[2021-07-28 13:22] LABS: HEMATOCRIT 32.9 % (36.0-47.0); HEMOGLOBIN 10.5 g/dl (12.0-15.5); MEAN CORPUSCULAR HEMOGLOBIN 30.6 pg (27.0-33.0); MEAN CORPUSCULAR HGB CONC 31.9 g/dl (32.0-36.5); MEAN CORPUSCULAR VOLUME 95.9 fl (80.0-96.0); PLATELET COUNT, AUTOMATED 190 10^3/uL (150-450); RED BLOOD COUNT 3.43 10^6/uL (4.00-5.40); WHITE BLOOD COUNT 9.6 10^3/uL (4.0-10.0)
== END ==
LOC: M PLALAB 08:01
PROVIDERS: ATTEND Obstetrics & Gynecology
DX: Z36.85 Encounter for antenatal screening for Streptococcus B (principal); O34.32 Maternal care for cervical incompetence, second trimester

== ENCOUNTER → 2021-07-30 | Outpatient (CLI) | payer OTHER | LOC: M LAB 08:26 | PROVIDERS: ATTEND Obstetrics & Gynecology | DX: R73.09 Other abnormal glucose (principal) ==

== ENCOUNTER 2021-09-24 08:55 | Outpatient (CLI) | payer OTHER ==
[~2021-09-24] VITALS: Ht 162.6 cm; Wt 94.8 kg
[2021-09-24 09:27] VITALS: BP 128/75
== END 2021-09-24 09:50 | disposition home or self-care (01) ==
LOC: M LDO 08:55
PROVIDERS: ATTEND Advanced Practice Midwife
DX: O34.33 Maternal care for cervical incompetence, third trimester (principal); Z3A.00 Weeks of gestation of pregnancy not specified

== ENCOUNTER 2021-10-10 06:46 | Emergency (ER) | payer OTHER ==
[~2021-10-10] VITALS: Ht 162.6 cm; Wt 95.3 kg
[2021-10-10 06:47] VITALS: BP 131/79
[2021-10-10] MEDS ORDERED: AMOXICILLIN 500 MG CAP PO ONE (07:30)
[2021-10-10] MEDS ORDERED: AMOX875T PO (07:31)
== END 2021-10-10 07:36 | disposition home or self-care (01) ==
LOC: M ED 06:46
DX: O99.891 Other specified diseases and conditions complicating pregnancy (principal); H66.001 Acute suppurative otitis media without spontaneous rupture of ear drum, right ear; Z3A.38 38 weeks gestation of pregnancy; O99.613 Diseases of the digestive system complicating pregnancy, third trimester; K21.9 Gastro-esophageal reflux disease without esophagitis

== ENCOUNTER 2021-10-16 23:00 | Inpatient (IN) | payer OTHER ==
[~2021-10-16] VITALS: Ht 162.6 cm; Wt 95.0 kg
[~2021-10-16 23:00] MED LIST changes: +AMOX875T PO
[2021-10-17] VITALS (10 sets, daily range): BP systolic 112–162; BP diastolic 62–86
[2021-10-17] MEDS ORDERED: PENICILLIN G POTASSIUM IV 5 MU in D5W MINI-BAG PLUS 100 ML IV STA (00:52)
[2021-10-17] MEDS ORDERED: LACTATED RINGER'S 1000 ML IV STA (00:52)
[2021-10-17] MEDS ORDERED: OXYTOCIN DRIP 30 UNITS in IV 1 EA IV PRN (00:55)
[2021-10-17] MEDS ORDERED: LR 1,000 ML IV SCH (00:55)
[2021-10-17 01:07] LABS: HEMOGLOBIN 11.4 g/dl (12.0-15.5); MEAN CORPUSCULAR HEMOGLOBIN 29.7 pg (27.0-33.0); MEAN CORPUSCULAR HGB CONC 32.6 g/dl (32.0-36.5); MEAN CORPUSCULAR VOLUME 91.1 fl (80.0-96.0); PLATELET COUNT, AUTOMATED 184 10^3/uL (150-450); RED BLOOD COUNT 3.84 10^6/uL (4.00-5.40); WHITE BLOOD COUNT 11.8 10^3/uL (4.0-10.0)
[2021-10-17] MEDS ORDERED: METHYLERGONOVINE MALEATE 0.2 MG TAB PO PRN (01:55)
[2021-10-17] MEDS ORDERED: RHOGAM 300 MCG (1500 IU) INJ (J2790) IM SCH (01:55)
[2021-10-17] MEDS ORDERED: ACETAMINOPHEN TAB 650MG DOSE (2X325MG) PO PRN (01:55)
[2021-10-17] MEDS ORDERED: OXYTOCIN DRIP 30 UNITS in IV 1 EA IV SCH (01:55)
[2021-10-17] MEDS ORDERED: IBUPROFEN 600MG TAB PO PRN (01:55)
[2021-10-17] MEDS ORDERED: ACETAMINOPHEN 500 MG TAB PO PRN (01:55)
[2021-10-17] MEDS ORDERED: DIBUCAINE 1% OINTMENT 30GM TOP PRN (01:55)
[2021-10-17] MEDS ORDERED: DOCUSATE SODIUM 100MG CAPSULE PO PRN (01:55)
[2021-10-17 02:09] LABS: CORD GAS ABE A 1.4; CORD GAS HCO3 A 28.8 MEQ/L; CORD GAS O2 SAT A 61.5 %; CORD GAS PCO2 A 57.1 mmHg; CORD GAS PH A 7.321 UNITS; CORD GAS PO2 A 27.6 mmHg; CORD GAS SBC A 24.9 MEQ/L; CORD GAS TCO2 A 30.6 MEQ/L
[2021-10-17 02:10] LABS: CORD GAS ABE V 2.9; CORD GAS HCO3 V 26.7 MEQ/L; CORD GAS O2 SAT V 66.1 %; CORD GAS PCO2 V 38.2 mmHg; CORD GAS PH V 7.462 UNITS; CORD GAS PO2 V 25.7 mmHg; CORD GAS SBC V 26.2 MEQ/L; CORD GAS TCO2 V 27.9 MEQ/L
[2021-10-17] MEDS: IBUPROFEN 800 MG TAB PO PRN ×2 (02:13→13:05)
[2021-10-17] MEDS ORDERED: PERCOCET 5MG/325MG TAB PO ONE (03:00)
[2021-10-17] MEDS ORDERED: PENICILLIN G POTASSIUM IV 2.5 MU in IV 1 EA IV SCH (05:00)
[2021-10-17] MEDS: PRENATAL VITAMINS CHEWABLE TABLET PO SCH (07:57)
[2021-10-17] MEDS ORDERED: HOME MED LIST COMPLETE! XX SCH (16:55)
[2021-10-17] MEDS ORDERED: OMEPRAZOLE 20MG CAP PO PRN (21:25)
[2021-10-18] MEDS: IBUPROFEN 800 MG TAB PO PRN ×2 (05:06→16:34)
[2021-10-18 06:00] VITALS: BP 123/82
[2021-10-18] MEDS: OMEPRAZOLE 20MG CAP PO PRN (09:56)
[2021-10-18] MEDS: PRENATAL VITAMINS CHEWABLE TABLET PO SCH (09:56)
[2021-10-18 18:38] VITALS: BP 127/75
[2021-10-19] MEDS: IBUPROFEN 800 MG TAB PO PRN (02:21)
[2021-10-19 06:00] VITALS: BP 123/69
[2021-10-19] MEDS: OMEPRAZOLE 20MG CAP PO PRN (07:44)
[2021-10-19] MEDS: PRENATAL VITAMINS CHEWABLE TABLET PO SCH (07:45)
[2021-10-19] MEDS ORDERED: MEASLES,MUMPS,RUBELLA VACCINE INJ (MMR-II) (90707) SC.IMMUN ONE (09:00)
[2021-10-19] MEDS ORDERED: IBUP80TA PO (11:45)
== END 2021-10-19 14:00 | disposition home or self-care (01) | DRG 560 ==
LOC: M LDO 23:00 → M LDI 10-17 00:42 → M OBS 10-17 03:59
PROVIDERS: ADMIT Obstetrics & Gynecology; ATTEND Obstetrics & Gynecology
PROC: 10E0XZZ Delivery of Products of Conception, External Approach (ICD-10-PCS; principal; 2021-10-17)
DX: O62.3 Precipitate labor (principal); Z3A.39 39 weeks gestation of pregnancy; Z37.0 Single live birth; O99.824 Streptococcus B carrier state complicating childbirth

== ENCOUNTER → 2022-01-26 | Outpatient (REF) | payer OTHER | LOC: M LAB REF 17:09 | PROVIDERS: ATTEND Registered Nurse | DX: R35.0 Frequency of micturition (principal) ==

== ENCOUNTER → 2022-02-09 | Outpatient (CLI) | payer OTHER ==
[2022-02-09 10:17] LABS: BASO % 0.3 % (0.0-1.0); EOS # 0.1 10^3/uL (0.0-0.5); EOS % 1.1 % (0.0-3.0); HEMATOCRIT 38.5 % (36.0-47.0); HEMOGLOBIN 12.1 g/dl (12.0-15.5); LYMPH # 4.2 10^3/uL (1.5-5.0); LYMPH % 46.4 % (24.0-44.0); MEAN CORPUSCULAR HEMOGLOBIN 29.5 pg (27.0-33.0); MEAN CORPUSCULAR HGB CONC 31.4 g/dl (32.0-36.5); MEAN CORPUSCULAR VOLUME 93.9 fl (80.0-96.0); MONO # 0.7 10^3/uL (0.0-0.8); MONO % 7.3 % (2.0-8.0); NEUTROPHILS # 4.1 10^3/uL (1.5-8.5); NEUTROPHILS % 44.6 % (36.0-66.0); PLATELET COUNT, AUTOMATED 260 10^3/uL (150-450); WHITE BLOOD COUNT 9.1 10^3/uL (4.0-10.0)
[2022-02-09 10:58] LABS: ALBUMIN 4.4 G/DL (3.2-5.2); ALKALINE PHOSPHATASE 77 U/L (46-116); ALT/SGPT 20 U/L (7.0-40); AST/SGOT 20 U/L (<34); BILIRUBIN,TOTAL 0.3 MG/DL (0.3-1.2); BLOOD UREA NITROGEN 15 MG/DL (9-23); CALCIUM LEVEL 9.4 MG/DL (8.5-10.1); CARBON DIOXIDE LEVEL 29 MMOL/L (20-31); CHLORIDE LEVEL 103 MMOL/L (98-107); CREATININE FOR GFR 0.71 MG/DL (0.55-1.30); FERRITIN 34.3 NG/ML (7.3-270.7); FREE T4 0.87 NG/DL (0.89-1.76); GLOMERULAR FILTRATION RATE > 60.0 (>60); GLUCOSE, FASTING 88 MG/DL (60-100); IRON (FE) 38 UG/DL (50-170); POTASSIUM SERUM 4.1 MMOL/L (3.5-5.1); SODIUM LEVEL 139 MMOL/L (136-145); THYROID STIMULATING HORMONE 3.107 uIU/ML (0.55-4.78); TOTAL IRON BINDING CAPACITY 346 UG/DL (250-425)
[2022-02-09 10:59] LABS: FOLATE > 24.00 NG/ML (>5.4); VITAMIN B12 LEVEL 489 PG/ML (211-911)
== END ==
LOC: M WUC 08:41
PROVIDERS: ATTEND Nurse Practitioner Family
DX: R53.83 Other fatigue (principal)

== ENCOUNTER → 2022-08-30 | Outpatient (CLI) | payer OTHER ==
[2022-08-30 11:35] LABS: BASO % 0.4 % (0.0-1.0); EOS # 0.1 10^3/uL (0.0-0.5); HEMATOCRIT 41.5 % (36.0-47.0); HEMOGLOBIN 13.4 g/dl (12.0-15.5); LYMPH # 3.7 10^3/uL (1.5-5.0); LYMPH % 39.6 % (24.0-44.0); MEAN CORPUSCULAR HGB CONC 32.3 g/dl (32.0-36.5); MONO # 0.6 10^3/uL (0.0-0.8); MONO % 6.5 % (2.0-8.0); NEUTROPHILS # 4.8 10^3/uL (1.5-8.5); NEUTROPHILS % 52.2 % (36.0-66.0); PLATELET COUNT, AUTOMATED 271 10^3/uL (150-450); RED BLOOD COUNT 4.46 10^6/uL (4.00-5.40); WHITE BLOOD COUNT 9.2 10^3/uL (4.0-10.0)
[2022-08-30 12:01] LABS: ALBUMIN 4.1 G/DL (3.2-5.2); ALKALINE PHOSPHATASE 75 U/L (46-116); ALT/SGPT 14 U/L (7.0-40); AST/SGOT 10 U/L (<34); BILIRUBIN,TOTAL 0.4 MG/DL (0.3-1.2); BLOOD UREA NITROGEN 11 MG/DL (9-23); CALCIUM LEVEL 9.8 MG/DL (8.5-10.1); CARBON DIOXIDE LEVEL 26 MMOL/L (20-31); CHLORIDE LEVEL 105 MMOL/L (98-107); CREATININE FOR GFR 0.63 MG/DL (0.55-1.30); FREE T3 3.6 PG/ML (2.3-4.2); FREE T4 0.91 NG/DL (0.89-1.76); GLOMERULAR FILTRATION RATE > 60.0 (>60); GLUCOSE, FASTING 92 MG/DL (60-100); IRON (FE) 54 UG/DL (50-170); POTASSIUM SERUM 4.1 MMOL/L (3.5-5.1); SODIUM LEVEL 138 MMOL/L (136-145); THYROID PEROXIDASE ANTIBODY 34 U/ML (<60.0); THYROID STIMULATING HORMONE 3.381 uIU/ML (0.55-4.78); TOTAL IRON BINDING CAPACITY 338 UG/DL (250-425); TOTAL PROTEIN 6.7 G/DL (5.7-8.2)
[2022-08-30 12:02] LABS: FERRITIN 33.4 NG/ML (7.3-270.7); PROLACTIN 9.16 NG/ML; TESTOSTERONE 19 NG/DL (14-76)
[2022-08-30 12:03] LABS: TOTAL 25(OH) VITAMIN D 34.4 NG/ML (20.0-100.0)
[2022-08-31 21:07] LABS: TISSUE TRANSGLUTAMINASE IgA <2 U/mL (0-3)
== END ==
LOC: M PLALAB 07:26
PROVIDERS: ATTEND Nurse Practitioner Family
DX: R53.83 Other fatigue (principal); N92.6 Irregular menstruation, unspecified; R14.0 Abdominal distension (gaseous)

== ENCOUNTER → 2023-03-31 | Outpatient (REF) | payer OTHER | LOC: M LAB REF 13:30 | PROVIDERS: ATTEND Nurse Practitioner Family | DX: R87.610 Atypical squamous cells of undetermined significance on cytologic smear of cervix (ASC-US) (principal) ==

== ENCOUNTER → 2023-04-14 | Outpatient (CLI) | payer OTHER ==
[2023-04-14 11:16] LABS: BASO % 0.3 % (0.0-1.0); EOS # 0.1 10^3/uL (0.0-0.5); EOS % 0.5 % (0.0-3.0); HEMATOCRIT 39.8 % (36.0-47.0); HEMOGLOBIN 12.9 g/dl (12.0-15.5); LYMPH # 3.5 10^3/uL (1.5-5.0); LYMPH % 35.3 % (24.0-44.0); MEAN CORPUSCULAR HEMOGLOBIN 30.3 pg (27.0-33.0); MEAN CORPUSCULAR HGB CONC 32.4 g/dl (32.0-36.5); MEAN CORPUSCULAR VOLUME 93.4 fl (80.0-96.0); MONO # 0.6 10^3/uL (0.0-0.8); NEUTROPHILS # 5.8 10^3/uL (1.5-8.5); NEUTROPHILS % 57.6 % (36.0-66.0); PLATELET COUNT, AUTOMATED 250 10^3/uL (150-450); RED BLOOD COUNT 4.26 10^6/uL (4.00-5.40)
[2023-04-14 11:45] LABS: ALBUMIN 4.2 G/DL (3.2-5.2); ALKALINE PHOSPHATASE 72 U/L (46-116); ALT/SGPT 18 U/L (7.0-40); AST/SGOT 8 U/L (<34); BILIRUBIN,TOTAL 0.4 MG/DL (0.3-1.2); BLOOD UREA NITROGEN 12 MG/DL (9-23); CARBON DIOXIDE LEVEL 27 MMOL/L (20-31); CHLORIDE LEVEL 106 MMOL/L (98-107); CHOLESTEROL LEVEL 152 MG/DL (<200); CHOLESTEROL RISK RATIO 4.05 (<5); CREATININE FOR GFR 0.74 MG/DL (0.55-1.30); GLOMERULAR FILTRATION RATE > 60.0 (>60); GLUCOSE, FASTING 91 MG/DL (60-100); HDL CHOLESTEROL 37.5 MG/DL (>40); LDL CHOLESTEROL 90.7 MG/DL (<100); NON-HDL-C 114.5 MG/DL; POTASSIUM SERUM 4.2 MMOL/L (3.5-5.1); SODIUM LEVEL 141 MMOL/L (136-145); TOTAL PROTEIN 6.9 G/DL (5.7-8.2); TRIGLYCERIDES LEVEL 119 MG/DL (<150)
[2023-04-14 11:50] LABS: FREE T4 0.86 NG/DL (0.89-1.76)
[2023-04-14 11:51] LABS: THYROID STIMULATING HORMONE 1.973 uIU/ML (0.55-4.78)
[2023-04-14 11:54] LABS: TOTAL 25(OH) VITAMIN D 31.7 NG/ML (20.0-100.0)
== END ==
LOC: M PLALAB 07:39
PROVIDERS: ATTEND Nurse Practitioner Family
DX: Z00.00 Encounter for general adult medical examination without abnormal findings (principal)

== ENCOUNTER 2023-08-09 09:04 | Day surgery (SDC) | payer OTHER ==
[~2023-08-09] VITALS: Ht 162.6 cm; Wt 78.0 kg
[~2023-08-09 09:04] MED LIST changes: +FAMO20TA PO; +HAIRTAB15 PO
[2023-08-09] MEDS: NS 1,000 ML IV ONE (09:39)
[2023-08-09] MEDS ORDERED: propofoL 200 MG/20 ML VIAL As Ordered ONE (10:06)
[2023-08-09 10:32] VITALS: TEMP 97.6
[2023-08-09 10:52] VITALS: BP 115/85; O2SAT 100
== END 2023-08-09 11:05 | disposition home or self-care (01) ==
LOC: M OPP 09:04
PROVIDERS: ATTEND Surgery
DX: K29.70 Gastritis, unspecified, without bleeding (principal); K44.9 Diaphragmatic hernia without obstruction or gangrene; R13.10 Dysphagia, unspecified; R10.13 Epigastric pain; Z79.899 Other long term (current) drug therapy

== ENCOUNTER → 2023-10-09 | Outpatient (CLI) | payer OTHER ==
[~2023-10-09] MED LIST changes: +E-Z-GAS II EFFERVESCENT PACKET (SODIUM BICARB./CITRIC ACID/SIMETHICONE) As Ordered ONE; +E-Z-HD 98% w/w 340GM SUSP BTL As Ordered ONE; +E-Z-PAQUE 96% w/w SUSP 176GM BTL As Ordered ONE
== END ==
LOC: M RAD 07:40
PROVIDERS: ATTEND Physician Assistant
DX: R13.10 Dysphagia, unspecified (principal); K44.9 Diaphragmatic hernia without obstruction or gangrene; K29.70 Gastritis, unspecified, without bleeding

== ENCOUNTER → 2024-05-27 | Outpatient (CLI) | payer OTHER ==
[~2024-05-27] MED LIST changes: -E-Z-GAS II EFFERVESCENT PACKET (SODIUM BICARB./CITRIC ACID/SIMETHICONE) As Ordered ONE; -E-Z-HD 98% w/w 340GM SUSP BTL As Ordered ONE; -E-Z-PAQUE 96% w/w SUSP 176GM BTL As Ordered ONE
[2024-05-27 10:44] LABS: BASO % 0.6 % (0.0-1.0); EOS # 0.1 10^3/uL (0.0-0.5); EOS % 1.3 % (0.0-3.0); HEMOGLOBIN 13.1 g/dl (12.0-15.5); LYMPH # 2.7 10^3/uL (1.5-5.0); LYMPH % 37.6 % (24.0-44.0); MONO # 0.5 10^3/uL (0.0-0.8); MONO % 7.1 % (2.0-8.0); NEUTROPHILS # 3.8 10^3/uL (1.5-8.5); NEUTROPHILS % 53.3 % (36.0-66.0); PLATELET COUNT, AUTOMATED 226 10^3/uL (150-450); RED BLOOD COUNT 4.36 10^6/uL (4.00-5.40); WHITE BLOOD COUNT 7.2 10^3/uL (4.0-10.0)
[2024-05-27 11:11] LABS: ALBUMIN 4.2 G/DL (3.2-5.2); ALKALINE PHOSPHATASE 57 U/L (35-104); ALT/SGPT 26 U/L (7.0-40); AST/SGOT 18 U/L (<34); BILIRUBIN,TOTAL 0.6 MG/DL (0.3-1.2); BLOOD UREA NITROGEN 12 MG/DL (9-23); CARBON DIOXIDE LEVEL 28 MMOL/L (20-31); CHLORIDE LEVEL 104 MMOL/L (98-107); CHOLESTEROL LEVEL 174 MG/DL (<200); CREATININE FOR GFR 0.71 MG/DL (0.55-1.30); GLOMERULAR FILTRATION RATE > 60.0 (>60); GLUCOSE, FASTING 88 MG/DL (60-100); HDL CHOLESTEROL 49.7 MG/DL (>40); LDL CHOLESTEROL 98.7 MG/DL (<100); NON-HDL-C 124.3 MG/DL; POTASSIUM SERUM 4.2 MMOL/L (3.5-5.1); SODIUM LEVEL 140 MMOL/L (136-145); TOTAL PROTEIN 6.9 G/DL (5.7-8.2); TRIGLYCERIDES LEVEL 128 MG/DL (<150)
[2024-05-27 11:12] LABS: FREE T4 1.03 NG/DL (0.89-1.76); THYROID STIMULATING HORMONE 2.088 uIU/ML (0.55-4.78)
[2024-05-27 11:13] LABS: TOTAL 25(OH) VITAMIN D 36.2 NG/ML (20.0-100.0)
== END ==
LOC: M PLALAB 08:44
PROVIDERS: ATTEND Nurse Practitioner Family
DX: Z00.00 Encounter for general adult medical examination without abnormal findings (principal)